=== PATIENT | male | born 1960 | race Caucasian/White ===

== ENCOUNTER 2017-01-17 05:56 | Inpatient (IN) | payer BC ==
--- NOTE | 2017-01-05 16:54 | HP ---
PREOPERATIVE HISTORY AND PHYSICAL: DATE OF ADMISSION/SURGERY: 01/17/17 DATE OF OFFICE VISIT: 01/04/17 ATTENDING SURGEON: Dr. Marge Higgins * (DICTATED BY JESÚS URBINA) PROCEDURE: Right total hip replacement. HISTORY OF PRESENT ILLNESS: Jose Eduardo is a 56-year-old male, who presents to the clinic for right hip pain due to severe osteoarthritis. He has failed conservative measures such as antiinflammatories and physical therapy, and has therefore agreed to undergo a right total hip replacement with Dr. Higgins on . PAST MEDICAL HISTORY: History of fractured skull. PAST SURGICAL HISTORY: Hernia repair. Denies prior complications with anesthesia. MEDICATIONS: Ibuprofen 200 mg by mouth as needed for pain. ALLERGIES: No known drug allergies. FAMILY HISTORY: Positive for maternal diabetes. SOCIAL HISTORY: The patient works in sales. He lives with his spouse. He is a former smoker. He quit 15 years ago. He denies illegal drug use. He reports occasional alcohol consumption. He is normally an independent ambulator. REVIEW OF SYSTEMS: A 14-point review of systems was reviewed with the patient. Positive for current complaint. Otherwise, negative. Denies history of DVT or PE. Denies history of bleeding disorder. Denies chest pain, shortness of breath. Denies fever, chills. PHYSICAL EXAMINATION GENERAL: A 56-year-old well-developed, well-nourished male, in no acute distress. Alert and oriented x3. Appropriate mood and affect. VITAL SIGNS: Height 70, weight 203, pulse 72, respiratory rate 16, temperature 97.7, BMI 29.1. HEENT: Normocephalic, atraumatic. PERRLA. Throat: Clear. NECK: Supple. PULMONARY: Lungs are clear to auscultation bilaterally. No wheezing, rhonchi, or rales. CARDIO: Regular rate and rhythm. S1, S2. No murmurs, rubs, or gallops. No edema. ABDOMEN: Positive bowel sounds, soft, and nontender. NEURO: Alert and oriented x3. Cranial nerves grossly intact. Sensation is intact to light touch. MUSCULOSKELETAL: Right lower extremity, skin is intact. No abrasions or open wounds. Active hip flexion at 90 degrees. Cannot abduct with groin pain, he lacks 10 degrees from neutral and has no internal rotation, 20 degrees external rotation. Rotation of the hip causes severe groin pain. No palpable masses. +5 /5 strength to dorsiflexion and plantar flexion. +2 DP pulses. Sensation intact to light touch distally. DIAGNOSTIC STUDIES: Multi-view x-rays revealed severe end-stage arthritis of the right hip joint with joint space narrowing, osteophyte formation, subchondral sclerosis with [id number] contact superiorly. IMPRESSION: Right hip severe end-stage osteoarthritis. PLAN: The patient is scheduled to undergo a right total hip replacement with Dr. Higgins on 01/17/17. He will return to the office in 10 to 14 days postop for followup and suture removal. A script for Percocet was sent for postop pain management, Coumadin for DVT prophylaxis, and Colace for constipation. JESÚS URBINA [id number]/[facility] #: [id number] MEDARDO
[~2017-01-17 05:56] MED LIST: Buffered Lidocaine 0.9% SYRIN* 5 ML/SYR SYRINGE INTRADERM ONE
[2017-01-17] MEDS ORDERED: Dexamethasone IV* 4 MG/ML 1 ML (4 MG) IV SLOW PU ONE (06:00)
[2017-01-17] MEDS ORDERED: Famotidine TAB* 20 MG PO ONE (06:00)
[2017-01-17] MEDS ORDERED: Scopolamine 1.5 mg* PATCH TRANSDERM ONE (06:00)
[2017-01-17] MEDS ORDERED: Buffered Lidocaine 0.9% SYRIN* 5 ML/SYR SYRINGE ONE (06:26)
[2017-01-17] MEDS ORDERED: Scopolamine 1.5 mg* PATCH ONE ×2 (06:26→06:57)
[2017-01-17] MEDS ORDERED: ceFAZolin 2 GM PREMIX (*) 2 GM/50 ML BAG IVPB ONE (06:26)
[2017-01-17] MEDS ORDERED: Dexamethasone IV* 4 MG/ML 1 ML (4 MG) ONE (06:26)
[2017-01-17] MEDS ORDERED: fentaNYL* 50 MCG/ML 2 ML VIAL (100 MCG VIAL) ONE (07:27)
[2017-01-17] MEDS ORDERED: Midazolam* 1 MG/ML 5 ML VIAL (5 MG) ONE (07:27)
[2017-01-17] MEDS ORDERED: Famotidine IV* 10 MG/ML 2 ML (20 mg) ONE (07:28)
[2017-01-17] MEDS ORDERED: Morphine PF AMP (0.5MG/ML)* 5 MG/10 ML AMP ONE (07:31)
[2017-01-17] MEDS ORDERED: Morphine INJ* 2 MG/ML 1 ML SYRINGE (TWO MG - NEW SYRINGE VERSION) IV PRN (07:31)
[2017-01-17] MEDS ORDERED: Ondansetron TAB* 4 MG PO PRN (07:31)
[2017-01-17] MEDS ORDERED: Bupivacaine 0.5% SDV PF* 30 ML VIAL ONE (07:31)
[2017-01-17] MEDS ORDERED: Ondansetron INJ* 2 MG/ML VIAL IV PRN ×2 (07:31→08:34)
[2017-01-17] MEDS ORDERED: Acetaminophen TAB* 325 MG PO PRN (07:31)
[2017-01-17] MEDS ORDERED: Polyethylene Glycol 3350* 17 GM PACKET PO PRN (07:31)
[2017-01-17] MEDS ORDERED: Magnesium Hydroxide LIQ* 30 ML UDC PO PRN (07:31)
[2017-01-17] MEDS ORDERED: oxyCODONE/Acetamin 5/325 MG* TAB PO PRN (07:31)
[2017-01-17] MEDS ORDERED: Bisacodyl SUPP* 10 MG SUPP PR PRN (07:31)
[2017-01-17] MEDS ORDERED: Midazolam* 1 MG/ML 2 ML VIAL (2 MG) ONE (07:45)
[2017-01-17] MEDS ORDERED: Propofol* 10 MG/ML 20 ML BTL IV PUSH ONE ×2 (07:48→09:40)
[2017-01-17] MEDS ORDERED: Lidocaine 2% PF * 5 ML VIAL ONE (07:48)
[2017-01-17] MEDS ORDERED: EPHEDrine (Pressors)* 50 MG/ML VIAL ONE (08:03)
[2017-01-17] MEDS ORDERED: Phenylephrine INJ* 10 MG/ML 1 ML VIAL (10 MG) ONE (08:14)
[2017-01-17] MEDS ORDERED: Acetaminophen IV 1GM/100ML * 1,000 MG/100 ML VIAL IVPB ONE (08:32)
[2017-01-17] MEDS ORDERED: fentaNYL* 50 MCG/ML 2 ML VIAL (100 MCG VIAL) IV PRN (08:32)
[2017-01-17] MEDS ORDERED: oxyCODONE TAB* 5 MG TAB PO PRN ×2 (08:32→08:34)
[2017-01-17] MEDS ORDERED: PROCHLORPERAZINE INJ 5 MG/ML 2 ML VIAL IV PRN ×2 (08:32→08:34)
[2017-01-17] MEDS ORDERED: Nalbuphine* 20 MG/ML 1 ML VIAL IV PRN (08:34)
[2017-01-17] MEDS ORDERED: Naloxone* 0.4 MG/ML 1 ML VIAL IV PRN (08:34)
--- NOTE | 2017-01-17 09:28 | RAD ---
INDICATION: Intraoperative right hip TECHNIQUE: A single AP portable x-ray of the hip was obtained FINDINGS: Components of the prosthesis included the acetabular cup and the femoral shaft prosthesis. The femoral head prosthesis has not yet been applied. Visualized bones are intact and appropriately aligned. IMPRESSION: Anatomic alignment in the AP projection of the femoral shaft and acetabular prostheses components.
--- NOTE | 2017-01-17 10:55 | RAD ---
INDICATION: Right FRANNIE COMPARISON: Preoperative x-ray dated October 24, 2016 TECHNIQUE: 3 views of the right hip were obtained. FINDINGS: There is been interval placement of an anatomically aligned right hip prosthesis. No fracture is identified. IMPRESSION: Anatomic alignment of right hip prosthesis.
[2017-01-17] MEDS: diPHENhydraMINE IV* 50 MG/ML 1 ml VIAL (BENADRYL) IV PRN (11:10)
[2017-01-17] MEDS ORDERED: diPHENhydraMINE IV* 50 MG/ML 1 ml VIAL (BENADRYL) ONE (11:11)
[2017-01-17] MEDS ORDERED: Acetaminophen IV 1GM/100ML * 100 ML ONE (11:35)
[2017-01-17] MEDS ORDERED: Nalbuphine* 20 MG/ML 1 ML VIAL ONE (12:35)
[2017-01-17] MEDS: Docusate CAP* 100 MG PO SCH ×2 (12:47→20:16)
[2017-01-17] MEDS: ceFAZolin 1 GM VIAL(*) 1 GM in NS 0.9% 50 ML* 50 ML IVPB SCH (16:00)
[2017-01-17] MEDS ORDERED: diPHENhydraMINE IV* 50 MG/ML 1 ml VIAL (BENADRYL) IV ONE (16:00)
[2017-01-17] MEDS ORDERED: Warfarin TAB(*) 6 MG PO ONE (17:00)
[2017-01-17] MEDS: Acetaminophen TAB* 325 MG PO SCH (20:16)
[2017-01-18] MEDS: ceFAZolin 1 GM VIAL(*) 1 GM in NS 0.9% 50 ML* 50 ML IVPB SCH ×2 (00:05→08:40)
[2017-01-18] MEDS: Acetaminophen TAB* 325 MG PO SCH (03:15)
[2017-01-18 05:31] LABS: Hematocrit 30 % (42-52); Hemoglobin 10.2 g/dl (14.0-18.0)
[2017-01-18 05:45] LABS: BUN/Creatinine Ratio 19.8 (8-20); Calcium 8.8 mg/dL (8.6-10.3); EGFR African American 111.2 (>60); EGFR Non-African American 86.5 (>60); Potassium 4.5 mmol/L (3.5-5.0)
[2017-01-18] MEDS: oxyCODONE/Acetamin 5/325 MG* TAB PO PRN ×3 (07:16→20:43)
[2017-01-18] MEDS ORDERED: Enoxaparin(*) 30 MG/0.3 ML SYR SUBCUT SCH (08:00)
[2017-01-18] MEDS: diPHENhydraMINE IV* 50 MG/ML 1 ml VIAL (BENADRYL) IV PRN (08:39)
[2017-01-18] MEDS: Docusate CAP* 100 MG PO SCH ×2 (08:41→20:44)
--- NOTE | 2017-01-18 08:48 | PN ---
Progress Note - Progress Note Date of Service: 01/18/17 SOAP: Subjective: [] Patient seen out of bed in chair. He has no questions or complaints today. Denies right hip or leg pain, chest pain, shortness of breath, dizziness, nausea or leg numbness. Fernando removed today, urinating on his own. No BM yet Objective: [] Vital Signs Temp 98.1 F 01/18/17 03:18 Pulse 74 01/18/17 03:18 Resp 18 01/18/17 08:39 BP 99/71 01/18/17 03:18 Pulse Ox 100 01/18/17 03:18 Intake & Output 01/17/17 01/18/17 01/18/17 18:59 06:59 18:59 Intake Total 2440 2105 Output Total 450 2050 Balance 1989 55 Intake: IV Fluids 1800 985 LR 1750 985 NS 50ML, Cefazolin 2G 50 Oral 640 1120 Output: Fernando 450 2050 Laboratory Last Values Hgb 10.2 g/dl (14.0-18.0) L 01/18/17 05:18 Hct 30 % (42-52) L 01/18/17 05:18 INR (Anticoag Therapy) 1.14 (0.89-1.11) H 01/18/17 05:18 Sodium 131 mmol/L (133-145) L 01/18/17 05:18 Potassium 4.5 mmol/L (3.5-5.0) 01/18/17 05:18 Chloride 99 mmol/L (101-111) L 01/18/17 05:18 Carbon Dioxide 27 mmol/L (22-32) 01/18/17 05:18 Anion Gap 5 mmol/L (2-11) 01/18/17 05:18 BUN 18 mg/dL (6-24) 01/18/17 05:18 Creatinine 0.91 mg/dL (0.67-1.17) 01/18/17 05:18 Est GFR ( Amer) 111.2 (>60) 01/18/17 05:18 Est GFR (Non-Af Amer) 86.5 (>60) 01/18/17 05:18 BUN/Creatinine Ratio 19.8 (8-20) 01/18/17 05:18 Glucose 139 mg/dL (70-100) H 01/18/17 05:18 Calcium 8.8 mg/dL (8.6-10.3) 01/18/17 05:18 General: Out of bed, well appearing, calm and cooperative. RLE: Dressing CDI without surrounding erythema Bilateral lower extremities: Calves supple and nontender without erythema, edema or palpable cords. Negative vasquez's sign. DF/PF intact. DP/PT pulses 2+ and symmetric. Brisk capillary refill distally. Assessment: []POD 1 s/p Right total hip arthroplasty 01/17, Dr Higgins Plan: []WBAT PT/OT 8 mg coumadin today Percocet for pain control Tentative D/C tomorrow
--- NOTE | 2017-01-18 10:17 | OP ---
DATE OF OPERATION: 01/17/17 - ROOM #342 DATE OF : 62 SURGEON: Marge Higgins MD. ROAD MARKER: JESÚS Bradley. Ricardo did help throughout the procedure with preparation of the leg, wound retraction, manipulation of the hip, and wound closure. ANESTHESIOLOGIST: Dr. Aleman. ANESTHESIA: Spinal. PRE-OP DIAGNOSIS: Severe endstage degenerative osteoarthritis of the right hip joint secondary to femoroacetabular impingement. POST-OP DIAGNOSIS: Severe endstage degenerative osteoarthritis of the right hip joint secondary to femoroacetabular impingement. OPERATIVE PROCEDURE: Right total hip arthroplasty. HARDWARE USED: This is uncemented Melvin total hip hardware. For the cup, a 54E Tritanium cluster hole shell. A single 20 mm cancellous bone screw. For the liner, a Trident X3 10-degree polyethylene insert, 36E. For the stem, an Accolade TMZF size 2.5 with 127 degree neck, and for the head, a Biolox delta ceramic V40 femoral head 36, +2.5. ESTIMATED BLOOD LOSS: 350 mL. COMPLICATIONS: None. SPECIMEN: Femoral head and acetabular reaming sent to pathology. BRIEF HISTORY/INDICATIONS: Mr. Langston is a 56-year-old gentleman with a history of femoroacetabular impingement and intermittent right hip pain. he developed severe pain over the last year and radiographs showed [id number] arthritis. He failed conservative treatment with antiinflammatories, pain medication, physical therapy, and activity modification. Due to continued pain and decrease quality of life, he elected to undergo right total hip arthroplasty. Informed consent was obtained for the patient and he understood the risks of the surgery included, but were not limited to bleeding, infection, damage to nearby structures, continued pain, need for further surgery, intraoperative fracture, nerve palsy, hardware failure or loosening, dislocation, leg length discrepancy, stroke, heart attack, blood clot, and . He wished to proceed. INTRAOPERATIVE FINDINGS: Intraoperatively, the patient was noted to have complete loss of cartilage along the femoral head and acetabulum. He did have significant inferior acetabular osteophyte formation. DESCRIPTION OF PROCEDURE: Mr. Langston was identified in the preanesthesia unit. His right lower extremity was marked as the correct operative side. Informed consent was signed and placed in the chart. The patient was taken to the operating room and placed under spinal anesthesia. A Fernando catheter was placed. The patient was placed in the left lateral decubitus position on the pegboard with all bony prominences well padded. The right lower extremity was prepped and draped in the usual sterile fashion. Preop time-out was made to correctly identify the patient's side and site. Appropriate perioperative antibiotics were given within 1 hour of incision. A 12 cm posterior hip incision was made with a 10 blade and carried down to the lateral fascial layer. The lateral fascial layer was then incised in line with the skin incision. Charnley retractor was placed. The piriformis and conjoined tendons were identified and elevated off the posterolateral femur using electrocautery. These were tagged with #5 Ethibond. Electrocautery was then used to make a standard posterolateral capsular flap. This was also tagged with #5 Ethibond. The hip was carefully dislocated. Lesser troch to center of the femoral head measured 55 mm. Oscillating saw was used to make the appropriate femoral neck cut. Femoral head was sent to Pathology. The femur was carefully retracted anteriorly. After appropriate placement of retractors, the acetabulum was visualized. Long handle knife was used to sharply remove any remaining labrum from the acetabular rim. The acetabulum was sequentially reamed up to a size 53. The 53 had good subchondral bleeding bone bed. A 53 trial had excellent fit with appropriate anteversion and abduction angle. The final implant chosen was Tritanium 54E cluster hole shell. This was impacted into the acetabulum without difficulty. There was excellent stability as well as appropriate anteversion and abduction angle. A single 20 mm screw was placed in the superior posterior quadrant for stability. Trident X3 10-degree liner 36E was chosen and impacted into the acetabulum. Stability of the liner was checked and rechecked and noted to be stable. Attention was turned to the preparation of the femur. Canal finder was used enter the proximal femur. Proximal femur was sequentially broached up to size 2.5. The 2.5 broach had excellent fit and appropriate anteversion. A 127- degree neck trial was chosen as well as 36, +0 femoral head. Lesser troch to the center of the femoral head measured 53 mm. The head was switched to 36, + 2.5 which measured 55 mm. The hip was reduced and taken through range of motion. The hip was stable in all positions. There was appropriate leg lengths and soft tissue tension. The hip was carefully dislocated. All trials were carefully removed. Final implant chosen was an Accolade TMZF size 2.5 with a 127 degree neck. This was impacted into the femoral canal without difficulty. There was good stability and appropriate anteversion. Femoral head chosen was a Biolox delta ceramic V40 36, +2.5. This was impacted onto the femoral neck without difficulty. The hip was reduced and taken through range of motion. The hip was stable in all positions. The hip joint was copiously irrigated with sterile saline. Previously tagged capsule and tendons were reapproximated to the posterolateral femur through 2 trochanteric drill holes. Lateral fascia layer was closed using interrupted #1 Vicryls. The rest of the incision was closed in a layered fashion using 0 and 2-0 Vicryls. Skin was closed using running 3-0 Monocryl suture and Dermabond. Sterile Adaptic, 4x4s, and paper tape were used to cover the incision. The patient's anesthesia was reversed without difficulty. He was taken to the PACU in stable condition. Intended weightbearing will be weightbearing as tolerated. Intended DVT prophylaxis will be Coumadin with a Lovenox bridge. [id number]/[facility] #: [id number] MEDARDO
[2017-01-18] MEDS: oxyCODONE TAB* 5 MG TAB PO PRN (12:32)
[2017-01-18] MEDS ORDERED: Warfarin TAB(*) 4 MG PO ONE ×2 (17:00)
[2017-01-19] MEDS: oxyCODONE/Acetamin 5/325 MG* TAB PO PRN ×3 (00:51→09:22)
[2017-01-19 06:18] LABS: Hematocrit 27 % (42-52); Hemoglobin 9.2 g/dl (14.0-18.0); Mean Platelet Volume 8 um3 (7.4-10.4)
--- NOTE | 2017-01-19 07:28 | PN ---
Progress Note - Progress Note Date of Service: 01/19/17 SOAP: Subjective: resting comfortably with no complaints Objective: Vital Signs Temp Pulse Resp BP Pulse Ox 98.1 F 74 20 111/62 96 01/19/17 04:40 01/19/17 04:40 01/19/17 05:18 01/19/17 04:40 01/19/17 04:40 Laboratory Last Values Hgb 9.2 g/dl (14.0-18.0) L 01/19/17 05:58 Hct 27 % (42-52) L 01/19/17 05:58 Plt Count 182 10^3/ul (150-450) 01/19/17 05:58 MPV 8 um3 (7.4-10.4) 01/19/17 05:58 INR (Anticoag Therapy) 2.56 (0.89-1.11) H 01/19/17 05:58 Sodium 131 mmol/L (133-145) L 01/18/17 05:18 Potassium 4.5 mmol/L (3.5-5.0) 01/18/17 05:18 Chloride 99 mmol/L (101-111) L 01/18/17 05:18 Carbon Dioxide 27 mmol/L (22-32) 01/18/17 05:18 Anion Gap 5 mmol/L (2-11) 01/18/17 05:18 BUN 18 mg/dL (6-24) 01/18/17 05:18 Creatinine 0.91 mg/dL (0.67-1.17) 01/18/17 05:18 Est GFR ( Amer) 111.2 (>60) 01/18/17 05:18 Est GFR (Non-Af Amer) 86.5 (>60) 01/18/17 05:18 BUN/Creatinine Ratio 19.8 (8-20) 01/18/17 05:18 Glucose 139 mg/dL (70-100) H 01/18/17 05:18 Calcium 8.8 mg/dL (8.6-10.3) 01/18/17 05:18 incision: c/d; dressing changed PE: NVI Assessment: s/p right FRANNIE; POD#2 Plan: 1) PT/OT-WBAT 2) Lovenox/coumadin for DVT prophylaxis 3) will hold Coumadin 4) likely Home today; F/U with Ronaldo in 2 weeks
[2017-01-19] MEDS: Docusate CAP* 100 MG PO SCH (09:22)
--- NOTE | 2017-01-19 10:15 | DS ---
AMENDED REPORT NOW INCLUDES COSIGNER DESIGNATION - ESIGNED BEFORE ADJUSTMENTS DISCHARGE SUMMARY: DATE OF ADMISSION: 01/17/17 DATE OF DISCHARGE: 01/19/17 PROVIDER/SURGEON: Marge Higgins MD * (DICTATED BY JESÚS PEREZ) MACHINE FINISHER: JESÚS Bradley PREOPERATIVE DIAGNOSIS: Severe end-stage degenerative osteoarthritis of the right hip joint secondary to femoroacetabular impingement. OPERATIVE PROCEDURE: Right total hip arthroplasty. CONSULTATIONS: Physical Therapy and Occupational Therapy. HISTORY OF PRESENT ILLNESS: Mr. Langston is a 56-year-old male who presents to the clinic for right hip pain due to severe osteoarthritis. He has failed conservative measures such as anti-inflammatories and physical therapy and has therefore agreed to undergo right total hip replacement with Dr. Higgins on . HOSPITAL COURSE: Mr. Langston was admitted to [facility] on 01/17/17, where he underwent a right total hip arthroplasty with no complications. He recovered briefly in the postop anesthesia care unit and then was transferred to the short-stay surgical unit in stable condition. On postop day 1, his H and H was 10.0 and 30, INR was 1.14. Dressing was clean, dry, and intact. Extremity was neurovascularly intact. He could demonstrate dorsiflexion and plantarflexion with good strength. The patient was able to get out of bed with physical therapy. Pain was well controlled with Percocet. His urinary catheter was removed, and he was able to void on his own. On postop day 2, incision was clean, dry and intact. The patient's H and H was 9.2 and 27. INR was 2.56 after a dose of 8 mg the night before. Pain was controlled with Percocet. The patient was able to ambulate with the use of a rolling walker and assistance. The patient's pain was well controlled and was found to be stable for discharge. Throughout his hospital course, his vital signs remained stable and the patient was afebrile. DISCHARGE CONDITION: Stable. DISCHARGE MEDICATIONS: 1. Acetaminophen 650 mg p.o. q.4 hours p.r.n. for pain or temperature. 2. Colace 100 mg p.o. b.i.d. 3. Percocet 5/325 one to two tabs p.o. q.4 hours p.r.n. pain. 4. Coumadin 2 mg tabs, dosing to be determined by INR draws DISCHARGE INSTRUCTIONS: The patient may bear weight as tolerated. Wound care, the patient may shower on postop day 3. May wash with soap and water, and pat dry. Do not submerge wound. Home nursing to do wound checks and to draw INRs on Mondays and . Take 0 mg coumadin 01/19/17nd 01/20/18. Take 2 mg coumadin 01/21/17 and 01/22/17. Return to office to see Dr. Higgins in 10 to 14 days. If you have any chest pain or shortness of breath, report to the emergency room. If your wound site becomes red, increasingly painful, or has any drainage, please call the orthopedic office right away. JESÚS PEREZ [id number]/[facility] #: [id number] MEDARDO
[2017-01-19 11:30] VITALS: BP 104/61
[2017-01-19] MEDS: oxyCODONE TAB* 5 MG TAB PO PRN (12:32)
[2017-01-20] MEDS ORDERED: Scopolamine PATCH Remove* 1 NOTE MISC PATCH OFF ONE (06:00)
== END 2017-01-19 15:00 | disposition home health service (06) | DRG 301 ==
LOC: AA 05:56 → SSU 12:29
PROVIDERS: ADMIT Orthopaedic Surgery Adult Reconstructive Orthopaedic Surgery; ATTEND Orthopaedic Surgery Adult Reconstructive Orthopaedic Surgery
PROC: 0SR904A Replacement of Right Hip Joint with Ceramic on Polyethylene Synthetic Substitute, Uncemented, Open Approach (ICD-10-PCS; principal; 2017-01-17 07:30)
DX: M16.11 Unilateral primary osteoarthritis, right hip (principal); M25.751 Osteophyte, right hip; Z83.3 Family history of diabetes mellitus; Z87.891 Personal history of nicotine dependence; Z72.89 Other problems related to lifestyle
CPT/HCPCS: 36415; 80048; 85014; 85018; 85049; 85610; A9270-GY; C1713; C1776; J0690; J1100; J1200; J1650; J2250; J2300; J2704; J3010